=== PATIENT | female | born 1955 | race Caucasian/White ===

== ENCOUNTER 2017-02-10 09:43 | Emergency (ER) | payer BC ==
[~2017-02-10] VITALS: Ht 160 cm; Wt 86.2 kg
[2017-02-10] MEDS ORDERED: IV NORMAL SALINE 1000ML BAG 1,000 ML IV ONE (10:15)
[2017-02-10] MEDS ORDERED: ONDANSETRON PF 4 MG/2 ML VIAL. IV ONE (10:15)
[2017-02-10] MEDS ORDERED: fentaNYL PF VIAL 100 MCG/2 ML VIAL IV ONE (10:15)
--- NOTE | 2017-02-10 10:18 | PHYS DOC ---
Past Medical History Past Medical History: Arthritis Past Surgical History: , Tonsillectomy, Other Additional Past Surgical Histo: R rotator cuff repair Alcohol Use: None Drug Use: None Adult General Chief Complaint Chief Complaint: WEAKNESS/GENERALIZED HPI HPI Patient is a 61 year old female presenting to the emergency department for evaluation of generalized weakness back pain chills sweating and generally does not feel well. She says that she had dysuria and went to [facility] on Wednesday and was prescribed Macrobid and she says that she has been feeling quite ill since starting this medication. She called the ambulance for this and she said she felt too weak to make it here on her own. She is nontoxic appearing with normal vital signs in no obvious distress. Review of Systems Review of Systems Constitutional: Denies fever or chills [] Eyes: Denies change in visual acuity, redness, or eye pain [] HENT: Denies nasal congestion or sore throat [] Respiratory: Denies cough or shortness of breath [] Cardiovascular: No additional information not addressed in HPI [] GI: Denies abdominal pain, nausea, vomiting, bloody stools or diarrhea [] : Denies dysuria or hematuria [] Musculoskeletal: + back pain. No joint pain [] Integument: Denies rash or skin lesions [] Neurologic: Denies headache, focal weakness or sensory changes [] Current Medications Current Medications Current Medications Medications (Trade) Dose Ordered Sig/Zeferino Start Time Stop Time Status Last Admin Dose Admin Ceftriaxone Sodium 50 ml @ 100 mls/hr 1X ONCE 02/10/17 13:45 02/10/17 14:14 DC Fentanyl Citrate (Fentanyl 2ml Vial) 50 mcg PRN Q2HR PRN 02/10/17 13:15 02/11/17 13:14 Info (Do NOT chart on this entry -- for MONITORING) 1 each PRN DAILY PRN 02/10/17 12:45 02/12/17 12:44 Iohexol (Omnipaque 300 Mg/ml) 60 ml 1X ONCE 02/10/17 12:30 02/10/17 12:33 DC 02/10/17 12:49 60 ML Ketorolac Tromethamine (Toradol) 30 mg 1X ONCE 02/10/17 14:15 02/10/17 14:16 DC Ondansetron HCl (Zofran) 4 mg PRN Q8HRS PRN 02/10/17 13:15 02/11/17 13:14 Phenazopyridine HCl (Pyridium) 200 mg 1X ONCE 02/10/17 10:45 02/10/17 10:46 DC 02/10/17 11:01 200 MG Promethazine HCl 25 mg/Sodium Chloride 51 ml @ 151.5 mls/ hr 1X STAT 02/10/17 13:15 02/10/17 13:35 DC 02/10/17 13:46 151.5 MLS/HR Sodium Chloride 1,000 ml @ 1,000 mls/hr 1X ONCE 02/10/17 10:15 02/10/17 11:14 DC 02/10/17 10:35 1,000 MLS/HR Allergies Allergies Allergies Coded Allergies Type Severity Reaction Last Updated Verified No Known Drug Allergies 02/10/17 No Physical Exam Physical Exam Constitutional: Well developed, well nourished, no acute distress, non-toxic appearance. [] HENT: Normocephalic, atraumatic, bilateral external ears normal, oropharynx moist, no oral exudates, nose normal. [] Eyes: PERRLA, EOMI, conjunctiva normal, no discharge. [] Neck: Normal range of motion, no tenderness, supple, no stridor. [] Cardiovascular:Heart rate regular rhythm, no murmur [] Lungs & Thorax: Bilateral breath sounds clear to auscultation [] Abdomen: Bowel sounds normal, soft, no tenderness, no masses, no pulsatile masses. [] Skin: Warm, dry, no erythema, no rash. [] Back: No tenderness, no CVA tenderness. [] Extremities: No tenderness, no cyanosis, no clubbing, ROM intact, no edema. [] Neurologic: Alert and oriented X 3, normal motor function, normal sensory function, no focal deficits noted. [] Current Patient Data Vital Signs Vital Signs Date Time Temp Pulse Resp B/P (MAP) Pulse Ox O2 Delivery O2 Flow Rate FiO2 02/10/17 13:30 88 17 167/97 (120) 94 Room Air 02/10/17 11:00 2.0 02/10/17 10:00 97.8 97.8 Lab Values Laboratory Tests Test 02/10/17 10:03 02/10/17 10:35 02/10/17 12:45 Urine Collection Type Void Urine Color Holman Urine Clarity Clear Urine pH 6.0 Urine Specific [place] 1.010 Urine Protein Negative mg/dL (NEG-TRACE) Urine Glucose (UA) Negative mg/dL (NEG) Urine Ketones (Stick) mg/dL (NEG) Urine Blood Negative (NEG) Urine Nitrite (NEG) Urine Bilirubin (NEG) Urine Urobilinogen Dipstick mg/dL (0.2 mg/dL) Urine Leukocyte Esterase (NEG) Urine RBC 1-2 /HPF (0-2) Urine WBC 0 /HPF (0-4) Urine Bacteria 0 /HPF (0-FEW) White Blood Count 9.8 x10^3/uL (4.0-11.0) Red Blood Count 4.80 x10^6/uL (3.50-5.40) Hemoglobin 14.2 g/dL (12.0-15.5) Hematocrit 42.8 % (36.0-47.0) Mean Corpuscular Volume 89 fL (79-100) Mean Corpuscular Hemoglobin 30 pg (25-35) Mean Corpuscular Hemoglobin Concent 33 g/dL (31-37) Red Cell Distribution Width 14.2 % (11.5-14.5) Platelet Count 200 x10^3/uL (140-400) Neutrophils (%) (Auto) 71 % (31-73) Lymphocytes (%) (Auto) 18 % (24-48) L Monocytes (%) (Auto) 8 % (0-9) Eosinophils (%) (Auto) 2 % (0-3) Basophils (%) (Auto) 1 % (0-3) Neutrophils # (Auto) 6.9 x10^3uL (1.8-7.7) Lymphocytes # (Auto) 1.8 x10^3/uL (1.0-4.8) Monocytes # (Auto) 0.8 x10^3/uL (0.0-1.1) Eosinophils # (Auto) 0.2 x10^3/uL (0.0-0.7) Basophils # (Auto) 0.0 x10^3/uL (0.0-0.2) Sodium Level 143 mmol/L (136-145) Potassium Level 3.7 mmol/L (3.5-5.1) Chloride Level 105 mmol/L (98-107) Carbon Dioxide Level 25 mmol/L (21-32) Anion Gap 13 (6-14) Blood Urea Nitrogen 23 mg/dL (7-20) H Creatinine 1.0 mg/dL (0.6-1.0) Estimated GFR (Cockcroft-Gault) 56.2 BUN/Creatinine Ratio 23 (6-20) H Glucose Level 165 mg/dL (70-99) H Lactic Acid Level 1.3 mmol/L (0.4-2.0) Calcium Level 9.5 mg/dL (8.5-10.1) Magnesium Level 2.1 mg/dL (1.8-2.4) Total Bilirubin 1.0 mg/dL (0.2-1.0) Aspartate Amino Transferase (AST) 23 U/L (15-37) Alanine Aminotransferase (ALT) 24 U/L (14-59) Alkaline Phosphatase 76 U/L (46-116) Troponin I Quantitative < 0.017 ng/mL (0.000-0.055) Total Protein 7.5 g/dL (6.4-8.2) Albumin 4.0 g/dL (3.4-5.0) Albumin/Globulin Ratio 1.1 (1.0-1.7) Lipase 129 U/L (73-393) Thyroid Stimulating Hormone (TSH) 0.415 uIU/mL (0.358-3.74) Ethyl Alcohol Level < 10 mg/dL (0-10) Urine Opiates Screen Neg (NEG) Urine Methadone Screen Neg (NEG) Urine Barbiturates Neg (NEG) Urine Phencyclidine Screen Neg (NEG) Urine Amphetamine/Methamphetamine Neg (NEG) Urine Benzodiazepines Screen Neg (NEG) Urine Cocaine Screen Neg (NEG) Urine Cannabinoids Screen Neg (NEG) Urine Ethyl Alcohol Neg (NEG) Laboratory Tests 02/10/17 10:35 Laboratory Tests 02/10/17 10:35 EKG EKG [] Radiology/Procedures Radiology/Procedures CT of the abdomen and pelvis with contrast, 02/10/2017: History: Bilateral flank pain, recent UTI Multidetector CT imaging was performed following an IV bolus injection of iodinated contrast material. There are 2 small well-defined low density lesions in the left kidney compatible with cysts. There is mild perinephric edema on the left. The left renal collecting system is mildly dilated. The left ureter is mildly dilated down to the distal ureteral level where a 3 mm calculus is identified in the ureter. This is best seen on image 75 of series 3. There is no evidence of renal obstruction on the right. The right ureter is unremarkable. There are several small well-defined low density lesions in the liver. The largest of these lies anteriorly and demonstrates a low internal CT number compatible with a cyst. The other lesions are too small to definitively characterize but are also probably cysts. No bile duct dilatation is seen. The gallbladder is unremarkable. No pancreatic abnormality is detected. There appears to be a tiny cyst in the spleen. The spleen is of normal size. Aortic calcific plaquing is present without evidence of aneurysm. No abdominal or pelvic adenopathy is seen. There are several additional bilateral lower pelvic calcifications compatible with phleboliths. The bowel loops are not dilated. A portion of the appendix is visualized and it shows no abnormality. There is a moderate sized hiatal hernia. No free fluid or free air is evident in the abdomen or pelvis. Moderate multilevel degenerative changes are present in the spine. IMPRESSION: 1. Small obstructing calculus in the distal left ureter. 2. Left perinephric edema secondary to the obstruction and/or associated infection. 3. Hepatic and renal cysts. 4. Moderate-sized hiatal hernia. PQRS Compliance Statement: One or more of the following individualized dose reduction techniques were utilized for this examination: 1. Automated exposure control 2. Adjustment of the mA and/or kV according to patient size 3. Use of iterative reconstruction technique DICTATED and SIGNED BY: JOHNIE GRANDE MD DATE: 02/10/17 2779 Course & Med Decision Making Course & Med Decision Making Patient did not have any blood in her urine and her pain was in the bilateral flanks making the diagnosis of a bit more difficult to come up with kidney stone however on CT she does have a distal left ureter stone. Fluids Zofran and Phenergan and morphine and nothing seemed to make her pain and nausea better. We do not have urologist here I was trying to be aggressive to get her to go home however she has intractable pain nausea and vomiting. I spoke to Dr. Jacobs at [facility] and he accepted patient for admission. Derrick Disclaimer Derrick Disclaimer This electronic medical record was generated, in whole or in part, using a voice recognition dictation system. Departure Departure Impression: Primary Impression: Left ureteral calculus Additional Impression: Intractable back pain Disposition: 05 TRANSFER OTHER ([facility]) Condition: STABLE Problem Qualifiers JOSE WILSON DO Feb 10, 2017 10:18
[2017-02-10 10:32] LABS: GLUCOSE,URINE NEGATIVE (NEG); PROTEIN,URINE NEGATIVE (NEG-TRACE)
[2017-02-10 10:38] LABS: BACTERIA,URINE 0 /HPF (0-FEW); WBC,URINE 0 /HPF (0-4)
[2017-02-10 10:45] LABS: BASO % 1 % (0-3); EOS % 2 % (0-3); HEMATOCRIT 42.8 % (36.0-47.0); HEMOGLOBIN 14.2 g/dL (12.0-15.5); LYMPH # 1.8 x10^3/uL (1.0-4.8); LYMPH % 18 % (24-48); MEAN CORPUSCULAR HEMOGLOBIN 30 pg (25-35); MEAN CORPUSCULAR HGB CONC 33 g/dL (31-37); MEAN CORPUSCULAR VOLUME 89 fL (79-100); MONO % 8 % (0-9); NEUT % 71 % (31-73); PLATELET COUNT 200 x10^3/uL (140-400); RED CELL DISTRIBUTION WIDTH 14.2 % (11.5-14.5); WHITE BLOOD COUNT 9.8 x10^3/uL (4.0-11.0)
[2017-02-10] MEDS ORDERED: PHENAZOPYRIDINE 200 MG TABLET. PO ONE (10:45)
[2017-02-10 10:57] LABS: CALCIUM 9.5 mg/dL (8.5-10.1); GFR 56.2; POTASSIUM 3.7 mmol/L (3.5-5.1)
[2017-02-10 11:04] LABS: ALBUMIN/GLOBULIN RATIO 1.1 (1.0-1.7); MAGNESIUM 2.1 mg/dL (1.8-2.4); TOTAL PROTEIN 7.5 g/dL (6.4-8.2)
[2017-02-10] MEDS ORDERED: IOHEXOL 300 MG/ML 75 ML VIAL IV ONE (12:30)
[2017-02-10] MEDS ORDERED: CONTRAST GIVEN MC PRN (12:45)
[2017-02-10 13:07] LABS: BARBITURATES NEG (NEG); BENZODIAZEPINES NEG (NEG); CANNABINOIDS NEG (NEG); COCAINE NEG (NEG); METHADONE NEG (NEG); OPIATES NEG (NEG); PHENCYCLIDINE NEG (NEG)
[2017-02-10] MEDS ORDERED: fentaNYL PF VIAL 100 MCG/2 ML VIAL IV PRN (13:15)
[2017-02-10] MEDS ORDERED: PROMETHAZINE 25 MG in IV NORMAL SALINE 50ML 50 ML IV STA (13:15)
[2017-02-10] MEDS ORDERED: ONDANSETRON PF 4 MG/2 ML VIAL. IV PRN (13:15)
--- NOTE | 2017-02-10 13:20 | RAD ---
CT of the abdomen and pelvis with contrast, 02/10/2017: History: Bilateral flank pain, recent UTI Multidetector CT imaging was performed following an IV bolus injection of iodinated contrast material. There are 2 small well-defined low density lesions in the left kidney compatible with cysts. There is mild perinephric edema on the left. The left renal collecting system is mildly dilated. The left ureter is mildly dilated down to the distal ureteral level where a 3 mm calculus is identified in the ureter. This is best seen on image 75 of series 3. There is no evidence of renal obstruction on the right. The right ureter is unremarkable. There are several small well-defined low density lesions in the liver. The largest of these lies anteriorly and demonstrates a low internal CT number compatible with a cyst. The other lesions are too small to definitively characterize but are also probably cysts. No bile duct dilatation is seen. The gallbladder is unremarkable. No pancreatic abnormality is detected. There appears to be a tiny cyst in the spleen. The spleen is of normal size. Aortic calcific plaquing is present without evidence of aneurysm. No abdominal or pelvic adenopathy is seen. There are several additional bilateral lower pelvic calcifications compatible with phleboliths. The bowel loops are not dilated. A portion of the appendix is visualized and it shows no abnormality. There is a moderate sized hiatal hernia. No free fluid or free air is evident in the abdomen or pelvis. Moderate multilevel degenerative changes are present in the spine. IMPRESSION: 1. Small obstructing calculus in the distal left ureter. 2. Left perinephric edema secondary to the obstruction and/or associated infection. 3. Hepatic and renal cysts. 4. Moderate-sized hiatal hernia. PQRS Compliance Statement: One or more of the following individualized dose reduction techniques were utilized for this examination: 1. Automated exposure control 2. Adjustment of the mA and/or kV according to patient size 3. Use of iterative reconstruction technique
--- NOTE | 2017-02-10 13:57 | EKG ---
[facility] [address] [place] [address] Test Date: 2017-02-10 Test Time: 10:24:42 Pat Name: ERIKA LAW Department: Room: Gender: F [employer] Supervisor: : [id number] Requested By: JOSE WILSON Order Number: [id number] Reading MD: Brooklyn Johnson Measurements Intervals Baxter Rate: 84 P: 54 CA: 132 QRS: 6 QRSD: 92 T: 33 QT: 384 QTc: 457 Interpretive Statements SINUS RHYTHM LEFT ATRIAL ABNORMALITY QRS(T) CONTOUR ABNORMALITY CONSIDER ANTEROLATERAL MYOCARDIAL DAMAGE ABNORMAL ECG RI6.01 No previous ECG available for comparison Electronically Signed On 02-10-2017 20:46:07 CDT by Brooklyn Johnson
[2017-02-10] MEDS ORDERED: KETOROLAC TROMETHAMINE 30 MG/ML INJ. IV ONE (14:15)
[2017-02-10 18:00] VITALS: BP 157/93
== END 2017-02-10 18:05 | disposition short-term general hospital (02) ==
LOC: ER 09:43
DX: N20.1 Calculus of ureter (principal); M19.90 Unspecified osteoarthritis, unspecified site
CPT/HCPCS: 36415; 74177; 80053; 80307; 81001; 83605; 83690; 83735; 84443; 84484; 85025; 93005; 96361; 96365; 96367; 96375; 99285; G0480; J0690; J1885; J2405; J2550; J3010; J7030; Q9967; G0479